=== PATIENT | female | born 1970 | race American Indian/Alaskan Native ===

== ENCOUNTER 2018-03-30 23:42 | Emergency (ER) | payer OTHER ==
--- NOTE | 2018-03-30 23:47 | Emergency Department Report ---
ED General Adult HPI - General Stated complaint: DKA/AMS Time Seen by Provider: 03/30/18 23:45 - History of Present Illness Initial comments: Patient is a 40-year-old female past medical history of type 2 diabetes who presents with a syncopal episode. Patient felt lightheaded and fell on her knees. She did not hit her head she is complaining of some slight shortness of breath and some mild chest pain. Patient states that she takes metformin for diabetes. Per EMS her blood sugar was greater than 500. - Related Data Home Medications Medication Instructions Recorded Confirmed Last Taken ALBUTEROL Inhaler (OR & NICU) 2 puff PO Q4H PRN 03/31/18 03/31/18 Unknown [ProAir HFA Inhaler] AtorvaSTATin [Lipitor] 40 mg PO DAILY 03/31/18 03/31/18 Unknown Carvedilol 12.5 mg PO BID 03/31/18 03/31/18 Unknown Cholecalciferol (Vitamin D3) 1,000 units PO DAILY 03/31/18 03/31/18 Unknown [Vitamin D3] Ergocalciferol [Vitamin D2] 50,000 unit PO QWEEK 03/31/18 03/31/18 Unknown FLUoxetine HCL [Fluoxetine HCl] 20 mg PO QAM 03/31/18 03/31/18 Unknown Isosorbide Mononitrate 30 mg PO QAM 03/31/18 03/31/18 Unknown Lisinopril/Hydrochlorothiazide 20 mg PO DAILY 03/31/18 03/31/18 Unknown Magnesium Oxide 500 mg PO BID PRN 03/31/18 03/31/18 Unknown Metformin HCl 1,000 mg PO BID 03/31/18 03/31/18 03/30/18 NIFEdipine [Nifedipine ER] 60 mg PO DAILY 03/31/18 03/31/18 Unknown Nitrofurantoin Monohyd/M-Cryst 100 mg PO Q12HR 03/31/18 03/31/18 Unknown [Macrobid 100 mg Capsule] Sitagliptin Phosphate [Januvia] 100 mg PO DAILY 03/31/18 03/31/18 Unknown glipiZIDE [Glipizide] 10 mg PO BID 03/31/18 03/31/18 Unknown Allergies Allergy/AdvReac Type Severity Reaction Status Date / Time No Known Allergies Allergy Unverified 03/31/18 02:21 ED Review of Systems ROS: Stated complaint: DKA/AMS Other details as noted in HPI Constitutional: denies: chills, fever Eyes: denies: eye pain, eye discharge, vision change ENT: denies: ear pain, throat pain Respiratory: denies: cough, shortness of breath, wheezing Cardiovascular: denies: chest pain, palpitations Endocrine: no symptoms reported Gastrointestinal: denies: abdominal pain, nausea, diarrhea Genitourinary: denies: urgency, dysuria, discharge Musculoskeletal: denies: back pain, joint swelling, arthralgia Skin: denies: rash, lesions Neurological: denies: headache, weakness, paresthesias Psychiatric: denies: anxiety, depression Hematological/Lymphatic: denies: easy bleeding, easy bruising ED Past Medical Hx - Medications Home Medications: Home Medications Medication Instructions Recorded Confirmed Last Taken Type ALBUTEROL Inhaler (OR & NICU) 2 puff PO Q4H PRN 03/31/18 03/31/18 Unknown History [ProAir HFA Inhaler] AtorvaSTATin [Lipitor] 40 mg PO DAILY 03/31/18 03/31/18 Unknown History Carvedilol 12.5 mg PO BID 03/31/18 03/31/18 Unknown History Cholecalciferol (Vitamin D3) 1,000 units PO DAILY 03/31/18 03/31/18 Unknown History [Vitamin D3] Ergocalciferol [Vitamin D2] 50,000 unit PO QWEEK 03/31/18 03/31/18 Unknown History FLUoxetine HCL [Fluoxetine HCl] 20 mg PO QAM 03/31/18 03/31/18 Unknown History Isosorbide Mononitrate 30 mg PO QAM 03/31/18 03/31/18 Unknown History Lisinopril/Hydrochlorothiazide 20 mg PO DAILY 03/31/18 03/31/18 Unknown History Magnesium Oxide 500 mg PO BID PRN 03/31/18 03/31/18 Unknown History Metformin HCl 1,000 mg PO BID 03/31/18 03/31/18 03/30/18 History NIFEdipine [Nifedipine ER] 60 mg PO DAILY 03/31/18 03/31/18 Unknown History Nitrofurantoin Monohyd/M-Cryst 100 mg PO Q12HR 03/31/18 03/31/18 Unknown History [Macrobid 100 mg Capsule] Sitagliptin Phosphate [Januvia] 100 mg PO DAILY 03/31/18 03/31/18 Unknown History glipiZIDE [Glipizide] 10 mg PO BID 03/31/18 03/31/18 Unknown History ED Physical Exam - General General appearance: alert, in no apparent distress - Head Head exam: Present: atraumatic, normocephalic - Eye Eye exam: Present: normal appearance - ENT ENT exam: Present: mucous membranes moist - Neck Neck exam: Present: normal inspection - Respiratory Respiratory exam: Present: normal lung sounds bilaterally. Absent: respiratory distress - Cardiovascular Cardiovascular Exam: Present: regular rate, normal rhythm. Absent: systolic murmur, diastolic murmur, rubs, gallop - GI/Abdominal GI/Abdominal exam: Present: soft, normal bowel sounds - Extremities Exam Extremities exam: Present: normal inspection - Back Exam Back exam: Present: normal inspection - Neurological Exam Neurological exam: Present: alert, oriented X3 - Psychiatric Psychiatric exam: Present: normal affect, normal mood - Skin Skin exam: Present: warm, dry, intact, normal color. Absent: rash ED Course Vital Signs 03/30/18 03/30/18 03/31/18 23:45 23:57 00:00 Pulse Rate 124 H 123 H Respiratory 21 18 Rate Blood Pressure 196/118 196/118 O2 Sat by Pulse 100 100 100 Oximetry 03/31/18 03/31/18 03/31/18 00:30 01:00 02:02 Pulse Rate 127 H 120 H 110 H Respiratory 21 14 13 Rate Blood Pressure 206/100 196/118 188/88 O2 Sat by Pulse 100 100 100 Oximetry 03/31/18 03/31/18 03/31/18 02:30 03:00 03:30 Pulse Rate 110 H 107 H 97 H Respiratory 14 20 15 Rate Blood Pressure 194/105 174/104 179/92 O2 Sat by Pulse 100 100 100 Oximetry ED Medical Decision Making - Lab Data Result diagrams: 03/30/18 00:32 03/30/18 00:32 Lab Results 03/30/18 03/30/18 03/30/18 Range/Units 00:32 00:32 23:58 WBC 8.1 (4.5-11.0) K/mm3 RBC 5.42 H (3.65-5.03) M/mm3 Hgb 15.0 H (10.1-14.3) gm/dl Hct 43.7 H (30.3-42.9) % MCV 81 (79-97) fl MCH 28 (28-32) pg MCHC 34 (30-34) % RDW 13.5 (13.2-15.2) % Plt Count 252 (140-440) K/mm3 Lymph % (Auto) 16.1 (13.4-35.0) % Andrews % (Auto) 13.1 H (0.0-7.3) % Eos % (Auto) 1.0 (0.0-4.3) % Baso % (Auto) 1.4 (0.0-1.8) % Lymph # 1.3 (1.2-5.4) K/mm3 Andrews # 1.1 H (0.0-0.8) K/mm3 Eos # 0.1 (0.0-0.4) K/mm3 Baso # 0.1 (0.0-0.1) K/mm3 Seg Neutrophils % 68.4 (40.0-70.0) % Seg Neutrophils # 5.5 (1.8-7.7) K/mm3 Sodium 133 L (137-145) mmol/L Potassium 4.0 (3.6-5.0) mmol/L Chloride 91.0 L (98-107) mmol/L Carbon Dioxide 25 (22-30) mmol/L Anion Gap 21 mmol/L BUN 20 H (7-17) mg/dL Creatinine 1.2 (0.7-1.2) mg/dL Estimated GFR 48 ml/min BUN/Creatinine Ratio 17 % Glucose 611 H* (65-100) mg/dL POC Glucose > 500 H (70-105) Calcium 9.8 (8.4-10.2) mg/dL Total Bilirubin 0.20 (0.1-1.2) mg/dL AST 18 (5-40) units/L ALT 17 (7-56) units/L Alkaline Phosphatase 110 (35-129) units/L Troponin T < 0.010 (0.00-0.029) ng/mL Total Protein 8.5 H (6.3-8.2) g/dL Albumin 4.1 (3.9-5) g/dL Albumin/Globulin Ratio 0.9 % - EKG Data -: EKG Interpreted by Me - EKG Data 03/31/18 04:10 EKG shows sinus tachycardia at rate 101 probable left atrial enlargement no ST segment elevation noted with inversion. - Radiology Data Radiology results: report reviewed CT of the chest: Shows no pulmonary embolus inflated lungs no acute cardiopulmonary disease - Medical Decision Making Chief medical diagnosis: Hyperglycemia Differential medical diagnosis: Arrhythmia, pulmonary embolism I will get CBC, BMP, EKG, troponin, CT angiogram of chest, IV insulin and IV fluids Patient is feeling better I will send patient home with follow-up with primary care doctor laboratory and diagnostic workup was just remarkable for hyperglycemia which has now subsided. Discussed discharge plan with patient patient agrees with plan additional verbal discharge instructions were given. Critical care attestation.: If time is entered above; I have spent that time in minutes in the direct care of this critically ill patient, excluding procedure time. ED Disposition Clinical Impression: Near syncope Hyperglycemia due to type 2 diabetes mellitus Qualifiers: Diabetes mellitus mcc insulin use: without mcc use Qualified Code( s): E11.65 - Type 2 diabetes mellitus with hyperglycemia Disposition: DC-01 TO HOME OR SELFCARE Is pt being admited?: No Does the pt Need Aspirin: No Condition: Stable Instructions: Diabetes Mellitus Type 2 in Adults (ED) Referrals: PRIMARY CARE, [Primary Care Provider] - 3-5 Days
[2018-03-31 00:37] LABS: Basophils # (Auto) 0.1 K/mm3 (0.0-0.1); Basophils % (Auto) 1.4 % (0.0-1.8); Eosinophils # (Auto) 0.1 K/mm3 (0.0-0.4); Hematocrit 43.7 % (30.3-42.9); Lymphocytes # (Auto) 1.3 K/mm3 (1.2-5.4); Lymphocytes % (Auto) 16.1 % (13.4-35.0); Mean Corpuscular HGB Conc 34 % (30-34); Mean Corpuscular Volume 81 fl (79-97); Monocytes # (Auto) 1.1 K/mm3 (0.0-0.8); Monocytes % (Auto) 13.1 % (0.0-7.3); Platelet Count 252 K/mm3 (140-440); Red Blood Count 5.42 M/mm3 (3.65-5.03); Red Cell Distribution Width 13.5 % (13.2-15.2)
[2018-03-31 00:59] LABS: Alanine Aminotransferase 17 units/L (7-56); Albumin 4.1 g/dL (3.9-5); BUN/Creatinine Ratio 17; Blood Urea Nitrogen 20 mg/dL (7-17); Calcium 9.8 mg/dL (8.4-10.2); Hemolysis Index 25
[2018-03-31] MEDS ORDERED: HumuLIN R IV ONE (01:18)
--- NOTE | 2018-03-31 02:01 | Cat Scan Report ---
FINAL REPORT PROCEDURE: CT ANGIO CHEST TECHNIQUE: Computerized axial tomographic angiography of the chest and pulmonary arteries was perfor med after the IV injection of iodinated nonionic contrast. The image data was postprocessed using max imum intensity projection (MIP) and 2-dimensional multiplanar reformatted (MPR) techniques. The exami nation is specifically tailored to the evaluation of the pulmonary arteries per clinical request. HISTORY: Short of breath 786.09, chest pain 786.50, syncope and sob COMPARISON: No prior studies are available for comparison. FINDINGS: Heart and pericardium: Normal. Thoracic aorta: Normal. Pulmonary vasculature: Normal. No pulmonary emboli. Lymph nodes: No enlarged thoracic lymph nodes. Lungs: Lungs are expanded. There are fibrotic changes versus atelectasis at the lung bases. There are no infiltrates.. Pleural space: No effusion, thickening, or pneumothorax. Musculoskeletal structures: No significant abnormality. Upper abdominal structures: No significant abnormality. IMPRESSION: The there is no pulmonary embolism. There is no thoracic aortic aneurysm or dissection..
[2018-03-31] MEDS ORDERED: NACL 0.9% 1000 ML 1,000 ML IV ONE (02:13)
[2018-03-31] MEDS ORDERED: SUBLIMAZE IV ONE ×2 (02:13→03:00)
[2018-03-31] MEDS ORDERED: TYLENOL PO ONE (02:23)
[2018-03-31] MEDS ORDERED: LANTUS SUB-Q ONE (04:10)
[2018-03-31 06:13] VITALS: BP 147/81
== END 2018-03-31 05:16 | disposition home or self-care (01) ==
LOC: ED 23:42
DX: E11.65 Type 2 diabetes mellitus with hyperglycemia (principal); R55 Syncope and collapse
CPT/HCPCS: 36415; 71275; 80053; 82947; 82962; 84484; 85025; 93005; 93010; 96361; 96372; 96374; 99284; J7030; Q9967; J1815